=== PATIENT | female | born 2000 | race Two or more races ===

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

== ENCOUNTER 2019-03-27 21:08 | Emergency (ER) | payer MEDICAID ==
[~2019-03-27] VITALS: Ht 177.8 cm; Wt 65.9 kg
[2019-03-27 21:15] VITALS: Ht 177.8 cm; Wt 65.9 kg
[2019-03-27 22:35] VITALS: BP 121/78
== END 2019-03-27 22:35 | disposition home or self-care (01) ==
LOC: D.ER 21:08
DX: S61.212A Laceration without foreign body of right middle finger without damage to nail, initial encounter (principal); W22.8XXA Striking against or struck by other objects, initial encounter; Y93.9 Activity, unspecified; Y92.9 Unspecified place or not applicable

== ENCOUNTER 2020-02-13 13:05 | Emergency (ER) | payer OTHER ==
[~2020-02-13] VITALS: Ht 177.8 cm; Wt 74.6 kg
[2020-02-13 13:46] VITALS: Ht 177.8 cm; Wt 74.6 kg
[2020-02-13 14:14] LABS: HCG URINE NEGATIVE (NEGATIVE)
[2020-02-13 14:26] LABS: BASOPHILS 0.2 % (0-2); EOSINOPHILS 3.3 % (0-7); HEMATOCRIT 37.7 % (36.0-48.0); HEMOGLOBIN 12.3 g/dL (12-16); IMMATURE GRANULOCYTES 0.2 % (0-5); LYMPHOCYTES 49.6 % (15-50); MCH 27.3 pg (26.0-34.0); MCHC 32.6 g/dL (31.0-37.0); MCV 83.8 fL (80.0-100.0); MEAN PLATELET VOLUME 9.1 fL (7.4-10.4); MONOCYTES 8.4 % (2-11); NEUTROPHILS 38.3 % (40-80); PLATELET COUNT 292 10x3/uL (130-400); RDW 13.3 % (11.5-14.5); WBC 4.5 10x3/uL (4.8-10.8)
[2020-02-13 14:27] LABS: BACTERIA FEW HPF (NONE SEEN); BILIRUBIN NEGATIVE (NEGATIVE); EPITHELIAL CELLS 0-5 /hpf (0-5); KETONE NEGATIVE (NEGATIVE); NITRITE NEGATIVE (NEGATIVE); UROBILINOGEN NORMAL mg/dL (< 2); WHITE CELLS - URINE 0-5 HPF (0-4)
[2020-02-13 14:37] LABS: ANION GAP 10.2 mmol/L (8-16); CALCIUM 9.4 mg/dL (8.5-10.1); POTASSIUM - SERUM 4.2 mmol/L (3.5-5.1)
[2020-02-13 14:40] LABS: APTT 29.8 SECONDS (22.8-39.4); INR 1.14 (0.85-1.17); PROTIME 14.6 SECONDS (11.6-15.0)
[2020-02-13 14:43] LABS: ALBUMIN 3.9 g/dL (3.4-5.0); BILIRUBIN - TOTAL 0.36 mg/dL (0.2-1.3); PROTEIN - SERUM 7.2 g/dL (6.4-8.2)
[2020-02-13 15:23] VITALS: BP 126/80
[2020-02-13] MEDS ORDERED: ACETAMINOPHEN500 M1 PO (15:52)
[2020-02-13] MEDS ORDERED: CYCLOBENZAPRINE10 MG PO (15:52)
[2020-02-13] MEDS ORDERED: IBUPROFEN800 MG PO (15:52)
== END 2020-02-13 17:39 | disposition home or self-care (01) ==
LOC: D.ER 13:05
PROVIDERS: Family Medicine
DX: M79.662 Pain in left lower leg (principal); M79.601 Pain in right arm; M79.18 Myalgia, other site; T14.8XXA Other injury of unspecified body region, initial encounter; V49.9XXA Car occupant (driver) (passenger) injured in unspecified traffic accident, initial encounter